=== PATIENT | male | born 1935 | race Hispanic/Latino ===

== ENCOUNTER 2022-08-03 12:00 | Inpatient (IN) | payer MEDICARE ==
[~2022-08-03] VITALS: Ht 167.6 cm; Wt 77.1 kg
[2022-08-03 12:57] LABS: BASOPHILS % 0.3 % (0.0-1.0); EOSINOPHILS % 0.3 % (0.0-6.0); HEMATOCRIT 36.2 % (38.2-49.6); HEMOGLOBIN 12.2 g/dL (14.0-18.0); LYMPHOCYTES # (AUTO) 0.7 (1.0-3.2); LYMPHOCYTES % 6.5 % (18.0-39.1); MEAN CORPUSCULAR HEMOGLOBIN 32.1 pg (28-32); MEAN CORPUSCULAR HGB CONC 33.7 g/dL (31-35); MEAN CORPUSCULAR VOLUME 95.3 fL (81-99); MONOCYTES # (AUTO) 0.7 (0.2-0.8); MONOCYTES % 6.5 % (4.4-11.3); NEUTROPHILS # (AUTO) 9.8 (2.1-6.9); NEUTROPHILS % 86.1 % (38.7-80.0); PLATELET COUNT 326 x10e3/uL (140-360); RED CELL DISTRIBUTION WIDTH 12.9 % (11.7-14.4)
[2022-08-03 13:09] LABS: INR 1.68; PROTHROMBIN TIME 20.3 seconds (11.9-14.5)
[2022-08-03 13:10] LABS: ALBUMIN 3.2 g/dL (3.5-5.0); ALBUMIN/GLOBULIN RATIO 0.9 (0.8-2.0); ANION GAP 14.9 mmol/L (8-16); CALCIUM 10.1 mg/dL (8.4-10.2); CREATININE, SERUM 2.02 mg/dL (0.72-1.25); MAGNESIUM 2.2 MG/DL (1.3-2.1); PARTIAL THROMBOPLASTIN TIME 51.1 seconds (23.8-35.5); POTASSIUM 4.9 mmol/L (3.5-5.1)
[2022-08-03 13:16] LABS: CREATINE KINASE MB 1.2 ng/mL (0-5.0)
[2022-08-03 13:24] LABS: CLARITY,URINE CLOUDY (CLEAR); COLOR,URINE YELLOW (YELLOW); LEUKOCYTE ESTERASE ,URINE SMALL (NEGATIVE); NITRITE,URINE NEGATIVE (NEGATIVE)
[2022-08-03 13:25] LABS: KETONES,URINE NEGATIVE (NEGATIVE); PROTEIN,URINE DIPSTICK 2+ (NEGATIVE); URINE UROBILINOGEN 0.2 mg/dL (0.2 - 1)
[2022-08-03 13:39] LABS: BACTERIA,URINE MANY /HPF; EPITHELIAL CELLS,URINE FEW /LPF; RBC,URINE >50 /HPF (0-5); WBC,URINE (MAN) 21-50 /HPF (0-5)
[2022-08-03] MEDS ORDERED: ONDANSETRON HCL INJ 2MG/ML 2ML 2 MG/ML VIAL IV PRN (14:15)
[2022-08-03] MEDS: MEROPENEM 1 GM in SODIUM CHLORIDE 0.9% 100 ML IV SCH ×2 (14:57→21:27)
[2022-08-03] MEDS: SODIUM CHLORIDE 0.9% 1000ML 1,000 ML IV SCH (14:57)
[2022-08-03 16:19] VITALS: BP 152/62
[2022-08-03] MEDS ORDERED: TYLENOL325 MG PO (17:33)
[2022-08-03] MEDS ORDERED: FLOMAX0.4 MG PO (17:33)
[2022-08-03] MEDS ORDERED: POLYETHYLENE GL17 GM PO (17:33)
[2022-08-03] MEDS ORDERED: CRESTOR10 MG PO (17:33)
[2022-08-03] MEDS ORDERED: SERTRALINE HCL50 MG PO (17:33)
[2022-08-03] MEDS ORDERED: FINASTERIDE5 MG PO (17:33)
[2022-08-03] MEDS ORDERED: ELIQUIS5 MG PO (17:33)
[2022-08-03] MEDS ORDERED: MELATONIN3 MG PO (17:33)
[2022-08-03 21:00] VITALS: BP 152/62
[2022-08-03 21:17] VITALS: BP 135/75
[2022-08-04] VITALS (7 sets, daily range): BP systolic 110–124; BP diastolic 54–70
[2022-08-04] MEDS: HYDROCODONE/APAP 10MG-325MG TAB PO PRN (01:33)
[2022-08-04] MEDS: SODIUM CHLORIDE 0.9% 1000ML 1,000 ML IV SCH (01:33)
[2022-08-04 07:10] LABS: BASOPHILS % 0.6 % (0.0-1.0); EOSINOPHILS # (AUTO) 0.2 (0.0-0.4); EOSINOPHILS % 2.3 % (0.0-6.0); HEMATOCRIT 31.7 % (38.2-49.6); HEMOGLOBIN 10.4 g/dL (14.0-18.0); LYMPHOCYTES # (AUTO) 1.4 (1.0-3.2); LYMPHOCYTES % 19.5 % (18.0-39.1); MEAN CORPUSCULAR HEMOGLOBIN 31.8 pg (28-32); MEAN CORPUSCULAR HGB CONC 32.8 g/dL (31-35); MEAN CORPUSCULAR VOLUME 96.9 fL (81-99); MONOCYTES # (AUTO) 0.8 (0.2-0.8); MONOCYTES % 10.8 % (4.4-11.3); NEUTROPHILS # (AUTO) 4.7 (2.1-6.9); NEUTROPHILS % 66.7 % (38.7-80.0); PLATELET COUNT 263 x10e3/uL (140-360); RED BLOOD COUNT 3.27 x10e6/uL (4.3-5.7); RED CELL DISTRIBUTION WIDTH 12.8 % (11.7-14.4)
[2022-08-04 07:27] LABS: ALBUMIN 2.4 g/dL (3.5-5.0); ALBUMIN/GLOBULIN RATIO 0.8 (0.8-2.0); ANION GAP 10.9 mmol/L (8-16); CALCIUM 9.1 mg/dL (8.4-10.2); CREATININE, SERUM 1.21 mg/dL (0.72-1.25); POTASSIUM 3.9 mmol/L (3.5-5.1)
[2022-08-04 08:12] LABS: CREATINE KINASE MB < 1.00 ng/mL (0-4.3)
[2022-08-04] MEDS: MEROPENEM 1 GM in SODIUM CHLORIDE 0.9% 100 ML IV SCH ×2 (08:44→21:55)
[2022-08-04 13:44] LABS: CREATINE KINASE MB < 1.00 ng/mL (0-4.3)
[2022-08-04 14:19] LABS: CREATINE KINASE 21 IU/L (30-200)
[2022-08-04 14:19] LABS: CREATINE KINASE 25 IU/L (30-200)
[2022-08-04] MEDS ORDERED: ZIPRASIDONE 20 MG VIAL IM ONE (23:30)
[2022-08-05] VITALS (8 sets, daily range): BP systolic 139–152; BP diastolic 59–75
[2022-08-05] MEDS: MEROPENEM 1 GM in SODIUM CHLORIDE 0.9% 100 ML IV SCH (09:24)
[2022-08-05] MEDS: Vancomycin IV 1 GM in SODIUM CHLORIDE 0.9% 250ML 250 ML IV SCH (14:47)
[2022-08-05] MEDS ORDERED: PO PO PRN (17:15)
[2022-08-05] MEDS: MELATONIN 3 MG TAB PO SCH (19:48)
[2022-08-05] MEDS: HYDROCODONE/APAP 10MG-325MG TAB PO PRN (19:48)
[2022-08-06] VITALS (9 sets, daily range): BP systolic 116–148; BP diastolic 58–74
[2022-08-06] MEDS: Vancomycin IV 1 GM in SODIUM CHLORIDE 0.9% 250ML 250 ML IV SCH ×2 (01:13→15:37)
[2022-08-06] MEDS: HYDROCODONE/APAP 10MG-325MG TAB PO PRN (03:45)
[2022-08-06] MEDS: MELATONIN 3 MG TAB PO SCH (21:12)
[2022-08-07] MEDS: Vancomycin IV 1 GM in SODIUM CHLORIDE 0.9% 250ML 250 ML IV SCH ×2 (01:46→13:30)
[2022-08-07 04:00] VITALS: BP 130/62
[2022-08-07 08:04] VITALS: BP 117/61
[2022-08-07 08:50] VITALS: BP 117/61
[2022-08-07 09:31] LABS: BASOPHILS % 0.2 % (0.0-1.0); EOSINOPHILS # (AUTO) 0.5 (0.0-0.4); EOSINOPHILS % 5.5 % (0.0-6.0); HEMATOCRIT 32.2 % (38.2-49.6); HEMOGLOBIN 10.7 g/dL (14.0-18.0); LYMPHOCYTES # (AUTO) 0.9 (1.0-3.2); LYMPHOCYTES % 10.8 % (18.0-39.1); MEAN CORPUSCULAR HEMOGLOBIN 31.7 pg (28-32); MEAN CORPUSCULAR HGB CONC 33.2 g/dL (31-35); MEAN CORPUSCULAR VOLUME 95.3 fL (81-99); MONOCYTES # (AUTO) 0.7 (0.2-0.8); MONOCYTES % 7.9 % (4.4-11.3); NEUTROPHILS # (AUTO) 6.2 (2.1-6.9); NEUTROPHILS % 75.4 % (38.7-80.0); PLATELET COUNT 239 x10e3/uL (140-360); RED BLOOD COUNT 3.38 x10e6/uL (4.3-5.7); RED CELL DISTRIBUTION WIDTH 12.5 % (11.7-14.4)
[2022-08-07 09:46] LABS: ANION GAP 10.7 mmol/L (8-16); CALCIUM 8.7 mg/dL (8.4-10.2); CREATININE, SERUM 0.88 mg/dL (0.72-1.25); POTASSIUM 3.7 mmol/L (3.5-5.1)
[2022-08-07] MEDS ORDERED: APIXABAN 5 MG TABLET PO SCH (10:00)
[2022-08-07] MEDS ORDERED: ONDANSETRON ODT4 MG PO (10:57)
[2022-08-07] MEDS ORDERED: AMPICILLIN TRI500 MG PO (10:57)
[2022-08-07 11:36] VITALS: BP 129/75
[2022-08-07 15:38] VITALS: BP 115/82
[2022-08-07] MEDS ORDERED: CRESTOR 10MG PO SCH (21:00)
[2022-08-07] MEDS ORDERED: SIMVASTATIN 40 MG TAB PO SCH (21:00)
== END 2022-08-07 17:31 | disposition home or self-care (01) | DRG 690 ==
LOC: EDSEX 12:00 → ER 12:06 → ERHOLD 14:14 → MED/SURG2 15:44
PROVIDERS: ADMIT Internal Medicine; ATTEND Internal Medicine
DX: N30.91 Cystitis, unspecified with hematuria (principal); N17.9 Acute kidney failure, unspecified; N13.30 Unspecified hydronephrosis; I82.622 Acute embolism and thrombosis of deep veins of left upper extremity; I10 Essential (primary) hypertension; I25.10 Atherosclerotic heart disease of native coronary artery without angina pectoris; E78.5 Hyperlipidemia, unspecified; D63.8 Anemia in other chronic diseases classified elsewhere; N40.0 Benign prostatic hyperplasia without lower urinary tract symptoms; Z95.1 Presence of aortocoronary bypass graft; Z95.5 Presence of coronary angioplasty implant and graft; Z20.822 Contact with and (suspected) exposure to COVID-19
CPT/HCPCS: 0223U; 36415; 71045; 74176; 80048; 80053; 80202; 81001; 82550; 82553; 83735; 84484; 85025; 85610; 85730; 87086; 87186; 93005; 94799; 99252; 99284; J2185; J3486; J7030; J7050